=== PATIENT | male | born 1995 | race Two or more races ===

== ENCOUNTER 2021-07-15 23:16 | Emergency (ER) | payer OTHER ==
[~2021-07-15] VITALS: Ht 180.3 cm; Wt 74.8 kg
[2021-07-16] MEDS ORDERED: KETO10TA2 PO (03:19)
== END 2021-07-16 03:29 | disposition home or self-care (01) ==
LOC: ER 23:16
DX: S93.401A Sprain of unspecified ligament of right ankle, initial encounter (principal); Y93.89 Activity, other specified; Y92.9 Unspecified place or not applicable; X50.1XXA Overexertion from prolonged static or awkward postures, initial encounter

== ENCOUNTER 2021-11-18 11:59 | Emergency (ER) | payer OTHER ==
[~2021-11-18] VITALS: Ht 152.4 cm; Wt 75.7 kg
[~2021-11-18 11:59] MED LIST: KETO10TA2 PO
== END 2021-11-18 15:41 | disposition home or self-care (01) ==
LOC: ER 11:59
DX: R53.81 Other malaise (principal); R51.9 Headache, unspecified; Z20.822 Contact with and (suspected) exposure to COVID-19